=== PATIENT | male | born 1975 ===

== ENCOUNTER 2024-06-11 11:30 | Inpatient (IN) | payer OTHER ==
[~2024-06-11] VITALS: Ht 180.3 cm; Wt 92.5 kg
[2024-06-11] MEDS ORDERED: ZESTRIL2.5 MG PO (14:03)
[2024-06-17] MEDS ORDERED: CEFTRIAXONE SODIUM 2,000 MG VIAL ONE (08:10)
[2024-06-17] MEDS ORDERED: METRONIDAZOLE/SODIUM CHLORIDE 500 MG/100 ML PIGGYBACK IV ONE ×2 (08:10→19:15)
[2024-06-17] MEDS ORDERED: BUPIVACAINE HCL/MPF 0.5% 30ML VIAL ONE (11:16)
[2024-06-17] MEDS ORDERED: LIDOCAINE HCL 1%/EPINEPHRINE 20ML VIAL IJ ONE (11:16)
[2024-06-17] MEDS ORDERED: ENALAPRILAT DIHYDRATE 1.25 MG/ML VIAL IV ONE ×2 (15:38→20:11)
[2024-06-17] MEDS ORDERED: OxyCODONE HCL 5 MG TABLET (ROXICODONE) PO PRN (16:15)
[2024-06-17] MEDS ORDERED: DEXTROSE 50 % IN WATER 0.5 G/ML DISP.SYRIN IV PRN (16:15)
[2024-06-17] MEDS ORDERED: RINGERS SOLUTION,LACTATED 1,000 ML IV SCH (16:15)
[2024-06-17] MEDS ORDERED: MORPHINE SULFATE 4 MG/ML CARTRIDGE IV PRN (16:15)
[2024-06-17] MEDS ORDERED: ONDANSETRON HCL 2 MG/ML VIAL IV PRN (16:15)
[2024-06-17] MEDS ORDERED: GABAPENTIN 300 MG CAPSULE PO SCH (17:00)
[2024-06-17] MEDS ORDERED: METRONIDAZOLE/SODIUM CHLORIDE 500 MG/100 ML PIGGYBACK IV SCH (17:00)
[2024-06-17] MEDS ORDERED: METOCLOPRAMIDE HCL 5 MG/ML VIAL IV SCH (17:00)
[2024-06-17] MEDS ORDERED: HYOSCYAMINE SULFATE 0.125 MG TAB.SUBL SL SCH (17:00)
[2024-06-17] MEDS ORDERED: CELECOXIB 200 MG CAPSULE PO SCH (17:00)
[2024-06-17] MEDS ORDERED: POLYETHYLENE GLYCOL 3350 17 GM BLIST.PACK PO SCH (17:00)
[2024-06-17] MEDS ORDERED: ONDANSETRON HCL 2 MG/ML VIAL ONE (17:05)
[2024-06-17] MEDS ORDERED: ENALAPRILAT DIHYDRATE 1.25 MG/ML VIAL IV PRN (17:30)
[2024-06-17] MEDS ORDERED: ALBUTEROL SULFATE 3 ML/2.5 MG AMPUL.NEB IH SCH (18:00)
[2024-06-17] MEDS ORDERED: METOCLOPRAMIDE HCL 5 MG/ML VIAL ONE (19:15)
[2024-06-17] MEDS ORDERED: FAMOTIDINE/PF 20 MG/2 ML VIAL ONE (19:15)
[2024-06-17] MEDS ORDERED: ACETAMINOPHEN 500 MG GEL..CAP PO SCH (20:00)
[2024-06-17 20:03] LABS: HEMATOCRIT 46.2 % (39.0-48.0); HEMOGLOBIN 15.8 g/dL (13-16.00); MEAN CELL VOLUME 94.8 fL (80.0-100.00); MEAN CORPUSCULAR HEMOGLOBIN 32.5 pg (27.00-32.0); MEAN CORPUSCULAR HGB CONC 34.3 g/dl (32.0-36.0); PLATELET COUNT 253 K/uL (150-450); RED BLOOD COUNT 4.87 M/uL (4.00-6.00); RED CELL DISTRIBUTION WIDTH 13.6 % (11.5-14.5)
[2024-06-17] MEDS ORDERED: CEFAZOLIN SODIUM 1,000 MG VIAL ONE (20:24)
[2024-06-17 20:31] LABS: ALBUMIN 3.7 gm/dL (3.4-5.0); CALCIUM 9.2 mg/dL (8.5-10.1); CREATININE SERUM 1.02 mg/dL (0.70-1.30); MAGNESIUM 1.7 mg/dL (1.8-2.4); PHOSPHOROUS 2.7 mg/dL (2.5-4.9); POTASSIUM 4.41 mEq/L (3.5-5.1)
[2024-06-17] MEDS ORDERED: CEFAZOLIN SODIUM 1,000 MG VIAL IV SCH (21:00)
[2024-06-17] MEDS ORDERED: FAMOTIDINE/PF 20 MG/2 ML VIAL IV PUSH SCH (21:00)
[2024-06-17] MEDS ORDERED: FUROsemide 20 MG/2 ML VIAL ONE (21:40)
[2024-06-17] MEDS ORDERED: AMLODIPINE BESYLATE 5 MG TABLET PO STA (22:24)
[2024-06-18] MEDS ORDERED: ACETAMINOPHEN 500 MG GEL..CAP PO ONE (01:01)
[2024-06-18] MEDS ORDERED: METOCLOPRAMIDE HCL 5 MG/ML VIAL ONE (01:01)
[2024-06-18] MEDS ORDERED: GABAPENTIN 300 MG CAPSULE PO ONE (01:02)
[2024-06-18] MEDS ORDERED: METRONIDAZOLE/SODIUM CHLORIDE 500 MG/100 ML PIGGYBACK IV ONE (01:02)
[2024-06-18] MEDS ORDERED: ENALAPRILAT DIHYDRATE 1.25 MG/ML VIAL IV ONE (01:59)
[2024-06-18 02:55] VITALS: BP 131/76; O2SAT 100
[2024-06-18 06:52] LABS: HEMATOCRIT 47.3 % (39.0-48.0); HEMOGLOBIN 16.5 g/dL (13-16.00); MEAN CELL VOLUME 93.7 fL (80.0-100.00); MEAN CORPUSCULAR HEMOGLOBIN 32.7 pg (27.00-32.0); MEAN CORPUSCULAR HGB CONC 34.9 g/dl (32.0-36.0); PLATELET COUNT 288 K/uL (150-450); RED BLOOD COUNT 5.05 M/uL (4.00-6.00); RED CELL DISTRIBUTION WIDTH 13.6 % (11.5-14.5)
[2024-06-18 07:59] VITALS: BP 168/90; O2SAT 97
[2024-06-18 08:19] LABS: ALBUMIN 3.9 gm/dL (3.4-5.0); BILIRUBIN TOTAL 0.62 mg/dL (0.3-1.2); CALCIUM 8.9 mg/dL (8.5-10.1); CREATININE SERUM 0.79 mg/dL (0.70-1.30); GFR 103.4; GLOBULINA 3.9 G/DL (2.4-3.5); MAGNESIUM 1.7 mg/dL (1.8-2.4); PHOSPHOROUS 2.8 mg/dL (2.5-4.9); POTASSIUM 4.03 mEq/L (3.5-5.1); TOTAL PROTEIN 7.8 gm/dL (6.4-8.2)
[2024-06-18] MEDS ORDERED: LACTULOSE 20 G/30 ML BLIST.PACK PO SCH (09:00)
[2024-06-18] MEDS ORDERED: LISINOPRIL 5 MG TABLET PO SCH (09:00)
[2024-06-18] MEDS ORDERED: LACTOBACILLUS ACIDOPHILUS 1 CAP CAP PO SCH (09:00)
[2024-06-18] MEDS ORDERED: MAGNESIUM SULFATE IN WATER 50 ML IV NR (11:45)
[2024-06-18 14:08] LABS: INR 1.04; PARTIAL THROMBOPLASTIN TIME 29.6 SECONDS (22.0-34.0); PROTHROMBIN TIME 11.3 SECONDS (9.0-11.5)
[2024-06-18 15:00] VITALS: BP 163/83; O2SAT 99
[2024-06-18] MEDS ORDERED: ENOXAPARIN SODIUM 40 MG/0.4 ML SYRINGE SUBCUTANEO SCH (17:00)
[2024-06-19] VITALS: BP 129/75; O2SAT 95
[2024-06-19 06:53] LABS: HEMATOCRIT 42.8 % (39.0-48.0); MEAN CORPUSCULAR HEMOGLOBIN 32.8 pg (27.00-32.0); MEAN CORPUSCULAR HGB CONC 34.9 g/dl (32.0-36.0); PLATELET COUNT 230 K/uL (150-450); RED BLOOD COUNT 4.56 M/uL (4.00-6.00); RED CELL DISTRIBUTION WIDTH 13.8 % (11.5-14.5)
[2024-06-19 07:20] LABS: CALCIUM 8.6 mg/dL (8.5-10.1); CREATININE SERUM 0.81 mg/dL (0.70-1.30); GFR 100.46; MAGNESIUM 2.3 mg/dL (1.8-2.4); PHOSPHOROUS 2.2 mg/dL (2.5-4.9); POTASSIUM 3.71 mEq/L (3.5-5.1)
[2024-06-19] MEDS ORDERED: ALBUTEROL SULFATE 3 ML/2.5 MG AMPUL.NEB IH SCH (09:00)
[2024-06-19] MEDS ORDERED: ENOXAPARIN SODIUM 40 MG/0.4 ML SYRINGE SUBCUTANEO SCH (09:00)
[2024-06-19] MEDS ORDERED: NAPH,MB-DB/K PH,MBDB 1 PKT PACKET PO STA (10:55)
== END 2024-06-19 11:58 | disposition home or self-care (01) | DRG 330 ==
LOC: SURG 06-17 05:32 → O/R 06-17 05:32 → SURH 06-17 07:00 → SURG 06-17 16:28
PROVIDERS: Internal Medicine Geriatric Medicine; ADMIT Colon & Rectal Surgery; ATTEND Colon & Rectal Surgery
PROC: 0DBP4ZZ Excision of Rectum, Percutaneous Endoscopic Approach (ICD-10-PCS; 2024-06-17)
PROC: 0DJD8ZZ Inspection of Lower Intestinal Tract, Via Natural or Artificial Opening Endoscopic (ICD-10-PCS; 2024-06-17)
PROC: 0DTN4ZZ Resection of Sigmoid Colon, Percutaneous Endoscopic Approach (ICD-10-PCS; principal; 2024-06-17 07:00)
DX: K57.20 Diverticulitis of large intestine with perforation and abscess without bleeding (principal); K92.1 Melena; K66.0 Peritoneal adhesions (postprocedural) (postinfection); F17.200 Nicotine dependence, unspecified, uncomplicated

== ENCOUNTER 2024-11-19 12:30 | Inpatient (IN) | payer OTHER ==
[~2024-11-19] VITALS: Ht 180.3 cm; Wt 0.9 kg
[~2024-11-19 12:30] MED LIST: ZESTRIL2.5 MG PO
[2024-11-20] MEDS ORDERED: PROAIR RESPICL90 MCG IH (14:21)
[2024-11-26] MEDS ORDERED: BUPIVACAINE HCL/MPF 0.5% 30ML VIAL ONE (16:59)
[2024-11-26] MEDS ORDERED: LIDOCAINE HCL 1%/EPINEPHRINE 20ML VIAL IJ ONE (16:59)
[2024-11-26] MEDS ORDERED: CEFTRIAXONE SODIUM 2,000 MG VIAL ONE (17:07)
[2024-11-26] MEDS ORDERED: METRONIDAZOLE/SODIUM CHLORIDE 500 MG/100 ML PIGGYBACK IV ONE (17:07)
[2024-11-26] MEDS ORDERED: METOCLOPRAMIDE HCL 5 MG/ML VIAL ONE (17:55)
[2024-11-26] MEDS ORDERED: RINGERS SOLUTION,LACTATED 1,000 ML IV SCH (18:15)
[2024-11-26] MEDS ORDERED: ONDANSETRON HCL 2 MG/ML VIAL IV PRN (18:15)
[2024-11-26] MEDS ORDERED: OxyCODONE HCL 5 MG TABLET (ROXICODONE) PO PRN (18:15)
[2024-11-26] MEDS ORDERED: MORPHINE SULFATE 4 MG/ML CARTRIDGE IV PRN (18:15)
[2024-11-26] MEDS ORDERED: MORPHINE SULFATE 4 MG/ML VIAL IV ONE ×2 (19:30→20:30)
[2024-11-26] MEDS ORDERED: ACETAMINOPHEN 500 MG GEL..CAP PO SCH (20:00)
[2024-11-26] MEDS ORDERED: FAMOTIDINE/PF 20 MG/2 ML VIAL IV PUSH SCH (21:00)
[2024-11-26] MEDS ORDERED: SIMETHICONE 125 MG CAPSULE PO SCH (21:00)
[2024-11-26] MEDS ORDERED: FAMOTIDINE/PF 20 MG/2 ML VIAL ONE (22:06)
[2024-11-26 23:17] LABS: HEMATOCRIT 45.1 % (39.0-48.0); HEMOGLOBIN 15.2 g/dL (13-16.00); MEAN CELL VOLUME 94.4 fL (80.0-100.00); MEAN CORPUSCULAR HEMOGLOBIN 31.7 pg (27.00-32.0); MEAN CORPUSCULAR HGB CONC 33.6 g/dl (32.0-36.0); PLATELET COUNT 255 K/uL (150-450); RED BLOOD COUNT 4.78 M/uL (4.00-6.00); RED CELL DISTRIBUTION WIDTH 13.8 % (11.5-14.5)
[2024-11-27] MEDS ORDERED: GABAPENTIN 300 MG CAPSULE PO SCH (01:00)
[2024-11-27] MEDS ORDERED: METOCLOPRAMIDE HCL 5 MG/ML VIAL IV SCH (01:00)
[2024-11-27] MEDS ORDERED: GABAPENTIN 300 MG CAPSULE PO ONE (01:19)
[2024-11-27] MEDS ORDERED: ACETAMINOPHEN 500 MG GEL..CAP PO ONE (01:19)
[2024-11-27] MEDS ORDERED: METOCLOPRAMIDE HCL 5 MG/ML VIAL ONE (01:19)
[2024-11-27 02:31] VITALS: BP 132/78; O2SAT 95
[2024-11-27] MEDS ORDERED: CELECOXIB 200 MG CAPSULE PO SCH (05:00)
[2024-11-27] MEDS ORDERED: ALBUTEROL SULFATE 3 ML/2.5 MG AMPUL.NEB IH SCH (06:05)
[2024-11-27] MEDS ORDERED: ENALAPRILAT DIHYDRATE 1.25 MG/ML VIAL IV PRN (06:15)
[2024-11-27 07:37] LABS: HEMATOCRIT 43.4 % (39.0-48.0); HEMOGLOBIN 14.7 g/dL (13-16.00); MEAN CELL VOLUME 93.6 fL (80.0-100.00); MEAN CORPUSCULAR HEMOGLOBIN 31.7 pg (27.00-32.0); MEAN CORPUSCULAR HGB CONC 33.9 g/dl (32.0-36.0); PLATELET COUNT 241 K/uL (150-450); RED BLOOD COUNT 4.64 M/uL (4.00-6.00); RED CELL DISTRIBUTION WIDTH 13.4 % (11.5-14.5)
[2024-11-27 07:48] LABS: ALBUMIN 3.3 gm/dL (3.4-5.0); CALCIUM 8.8 mg/dL (8.5-10.1); CREATININE SERUM 0.79 mg/dL (0.70-1.30); GFR 103.4; MAGNESIUM 1.9 mg/dL (1.8-2.4); PHOSPHOROUS 3.3 mg/dL (2.5-4.9); POTASSIUM 4.3 mEq/L (3.5-5.1)
[2024-11-27 08:00] VITALS: BP 133/79; O2SAT 95
[2024-11-27] MEDS ORDERED: LACTOBACILLUS ACIDOPHILUS 1 CAP CAP PO SCH (09:00)
[2024-11-27] MEDS ORDERED: LACTULOSE 20 G/30 ML BLIST.PACK PO SCH (09:00)
[2024-11-27] MEDS ORDERED: LISINOPRIL 5 MG TABLET PO SCH (09:00)
[2024-11-27] MEDS ORDERED: HYOSCYAMINE SULFATE 0.125 MG TAB.SUBL SL SCH (09:00)
[2024-11-27 16:00] VITALS: BP 119/73; O2SAT 94
[2024-11-27] MEDS ORDERED: POLYETHYLENE GLYCOL 3350 17 GM BLIST.PACK PO SCH (17:00)
[2024-11-27] MEDS ORDERED: ENOXAPARIN SODIUM 40 MG/0.4 ML SYRINGE SUBCUTANEO SCH (17:00)
[2024-11-28 00:31] VITALS: BP 121/67; O2SAT 95
[2024-11-28 07:20] LABS: HEMATOCRIT 44.2 % (39.0-48.0); HEMOGLOBIN 15.1 g/dL (13-16.00); MEAN CELL VOLUME 93.7 fL (80.0-100.00); MEAN CORPUSCULAR HEMOGLOBIN 31.9 pg (27.00-32.0); MEAN CORPUSCULAR HGB CONC 34.1 g/dl (32.0-36.0); PLATELET COUNT 234 K/uL (150-450); RED BLOOD COUNT 4.72 M/uL (4.00-6.00); RED CELL DISTRIBUTION WIDTH 13.4 % (11.5-14.5)
[2024-11-28 07:40] LABS: CALCIUM 9.1 mg/dL (8.5-10.1); CREATININE SERUM 0.85 mg/dL (0.70-1.30); GFR 95.03; MAGNESIUM 1.9 mg/dL (1.8-2.4); PHOSPHOROUS 2.7 mg/dL (2.5-4.9); POTASSIUM 4.19 mEq/L (3.5-5.1)
[2024-11-28 08:00] VITALS: BP 155/92; O2SAT 95
[2024-11-28] MEDS ORDERED: ALBUTEROL SULFATE 3 ML/2.5 MG AMPUL.NEB IH SCH (09:00)
[2024-11-28] MEDS ORDERED: ENOXAPARIN SODIUM 40 MG/0.4 ML SYRINGE SUBCUTANEO SCH (09:00)
== END 2024-11-28 17:03 | disposition home or self-care (01) | DRG 330 ==
LOC: SURH 11-26 11:15 → O/R 11-26 12:40 → SURH 11-26 16:15
PROVIDERS: Internal Medicine Geriatric Medicine; ADMIT Colon & Rectal Surgery; ATTEND Colon & Rectal Surgery
PROC: 0DBE4ZZ Excision of Large Intestine, Percutaneous Endoscopic Approach (ICD-10-PCS; principal; 2024-11-26 16:15)
DX: K57.20 Diverticulitis of large intestine with perforation and abscess without bleeding (principal); K92.1 Melena